=== PATIENT | female | born 1945 | race African-American/Black ===

== ENCOUNTER 2022-01-19 15:39 | Emergency (ER) | payer OTHER ==
[2022-01-19 15:52] VITALS: BP 151/72; PULSE 69; RESP 18; TEMP 97.9; BMI 22.4
== END 2022-01-19 18:19 | disposition home or self-care (01) ==
LOC: JER 15:39
DX: S80.812A Abrasion, left lower leg, initial encounter (principal); W10.8XXA Fall (on) (from) other stairs and steps, initial encounter; V48.4XXA Person boarding or alighting a car injured in noncollision transport accident, initial encounter
CPT/HCPCS: 73590-TC-LT-FY; 99283-25

== ENCOUNTER 2022-06-16 21:18 | Emergency (ER) | payer OTHER ==
[2022-06-16 21:40] VITALS: BP 150/76; PULSE 65; RESP 20; TEMP 98.5; BMI 47.3
[2022-06-16] MEDS ORDERED: ACETAMINOPHEN 325 MG TABLET (FP) PO ONE (23:07)
[2022-06-16] MEDS ORDERED: ACETAMINOPHEN 325 MG TABLET (FP) ONE (23:07)
== END 2022-06-16 23:27 | disposition home or self-care (01) ==
LOC: JER 21:18 → JERFT 21:18 → JER 23:27
DX: M25.562 Pain in left knee (principal); W01.0XXA Fall on same level from slipping, tripping and stumbling without subsequent striking against object, initial encounter
CPT/HCPCS: 73560-TC-LT-FY; 99283-25

== ENCOUNTER 2022-09-09 08:24 | Observation (INO) | payer OTHER ==
[2022-09-09 08:54] VITALS: RESP 18
[2022-09-09 10:29] LABS: BASO % 0.8 % (0-2.0); EOS % 1.1 % (0-4.5); HEMATOCRIT 35.2 % (32.4-45.2); HEMOGLOBIN 11.6 GM/dL (10.7-15.3); MCH 28.1 pg (25.7-33.7); MEAN CELL VOLUME 85.1 fl (80-96); MEAN PLT VOLUME 10.6 fl (7.5-11.1); MONO % 14.9 % (3.8-10.2); NEUT % 67.2 % (42.8-82.8); PLATELET COUNT 102 10^3/uL (134-434); RBC 4.14 M/mm3 (3.60-5.2); RDW 13.8 % (11.6-15.6); WHITE BLOOD COUNT 6.4 K/mm3 (4.0-10.0)
[2022-09-09 10:34] LABS: INR 1.06 (0.83-1.09); PROTHROMBIN TIME (PATIENT) 12.3 SEC (9.7-13.0)
[2022-09-09 10:37] LABS: ACTIVATED PTT 29.1 SECONDS (25.2-36.5)
[2022-09-09 10:47] LABS: POTASSIUM 3.7 mmol/L (3.5-5.1)
[2022-09-09 10:49] LABS: ALBUMIN 3.4 g/dl (3.4-5.0); BLOOD UREA NITROGEN 16.6 mg/dL (7-18); CALCIUM 9.5 mg/dL (8.5-10.1)
[2022-09-09 10:52] LABS: CREATININE 0.8 mg/dL (0.55-1.3)
[2022-09-09 10:54] LABS: BILIRUBIN,TOTAL 0.5 mg/dL (0.2-1); TOT PROT 6.9 g/dl (6.4-8.2)
[2022-09-09] MEDS ORDERED: ACETAMINOPHEN 1000 MG/100 ML BAG IVPB PRN (15:04)
[2022-09-09] MEDS ORDERED: ACETAMINOPHEN 1000 MG/100 ML BAG IVPB SCH (15:15)
[2022-09-09 15:55] VITALS: BMI 23.0
[2022-09-09] MEDS: LISINOPRIL 20 MG TABLET PO SCH (16:14)
[2022-09-09] MEDS: NIFEdipine E.R 60 MG TABLET PO SCH (16:14)
[2022-09-10] MEDS: NIFEdipine E.R 60 MG TABLET PO SCH (09:50)
[2022-09-10] MEDS: LISINOPRIL 20 MG TABLET PO SCH (09:50)
[2022-09-10] MEDS ORDERED: ATENOLOL 50 MG TABLET (FP) PO SCH (10:00)
[2022-09-10] MEDS ORDERED: ATORVASTATIN CA 80 MG TABLET (FP) PO SCH (10:00)
[2022-09-10] MEDS ORDERED: ENOXAPARIN NA (PORCINE) 40 MG/0.4 ML DISP.SYRIN SQ SCH (10:00)
[2022-09-10 10:28] LABS: POTASSIUM 3.3 mmol/L (3.5-5.1)
[2022-09-10 10:35] LABS: BLOOD UREA NITROGEN 14.2 mg/dL (7-18); PHOSPHOROUS 2.8 mg/dL (2.5-4.9)
[2022-09-10 10:36] LABS: ALBUMIN 3.4 g/dl (3.4-5.0)
[2022-09-10 10:37] LABS: BILIRUBIN,TOTAL 0.3 mg/dL (0.2-1); TOT PROT 7.2 g/dl (6.4-8.2)
[2022-09-10 10:38] LABS: CALCIUM 9.1 mg/dL (8.5-10.1); MAGNESIUM 2.3 mg/dL (1.8-2.4)
[2022-09-10 10:39] LABS: BASO % 0.4 % (0-2.0); CREATININE 0.9 mg/dL (0.55-1.3); EOS % 2.2 % (0-4.5); HEMATOCRIT 38.2 % (32.4-45.2); HEMOGLOBIN 12.5 GM/dL (10.7-15.3); LYMPH % 21.7 % (8-40); MCH 27.8 pg (25.7-33.7); MCHC 32.7 g/dl (32.0-36.0); MEAN PLT VOLUME 10.9 fl (7.5-11.1); MONO % 13.2 % (3.8-10.2); NEUT % 62.5 % (42.8-82.8); PLATELET COUNT 120 10^3/uL (134-434); RBC 4.49 M/mm3 (3.60-5.2); RDW 13.8 % (11.6-15.6); WHITE BLOOD COUNT 5.2 K/mm3 (4.0-10.0)
[2022-09-10 13:44] VITALS: BP 121/63; PULSE 56; TEMP 97.8
== END 2022-09-10 19:18 | disposition home or self-care (01) ==
LOC: JER 08:24 → JERBED 14:37 → J6S 15:26
PROVIDERS: ADMIT Internal Medicine; ATTEND Internal Medicine
PROC: 2W3JX1Z Immobilization of Right Finger using Splint (ICD-10-PCS; principal; 2022-09-09)
PROC: 3E013GC Introduction of Other Therapeutic Substance into Subcutaneous Tissue, Percutaneous Approach (ICD-10-PCS; 2022-09-09)
DX: S62.521A Displaced fracture of distal phalanx of right thumb, initial encounter for closed fracture (principal); S80.02XA Contusion of left knee, initial encounter; G62.9 Polyneuropathy, unspecified; I10 Essential (primary) hypertension; E78.5 Hyperlipidemia, unspecified; W18.39XA Other fall on same level, initial encounter; Y93.89 Activity, other specified; Y92.9 Unspecified place or not applicable
CPT/HCPCS: 0241U-QW; 29130; 36415; 70450-TC; 71045-TC-FY; 72125-TC; 72170-TC-FY; 73130-TC-RT-FY; 73140-TC-RT-FY; 73502-TC-LT-FY; 73552-TC-LT-FY; 73560-TC-LT-FY; 73590-TC-LT-FY; 73700-TC-RT; 80053; 83735; 84100; 84484; 85025; 85610; 85730; 93005; 93010; 93971-TC; 96372; 97116-GP; 97162-GP; 99285-25; G0378

== ENCOUNTER 2024-09-30 16:08 | Emergency (ER) | payer OTHER ==
[2024-09-30 16:31] VITALS: BP 114/54; PULSE 61; RESP 18; TEMP 98.8; BMI 20.3
[2024-09-30] MEDS ORDERED: METHOCARBAMOL 500 MG TABLET ONE (17:00)
[2024-09-30] MEDS ORDERED: LIDOCAINE 4% PATCH TP ONE (17:01)
[2024-09-30] MEDS: METHOCARBAMOL 750 MG TABLET PO ONE (17:05)
[2024-09-30] MEDS: METHYL SALICYLATE/MENTHOL 30 GM TUBE TP ONE (17:05)
[2024-09-30] MEDS: LIDOCAINE 4% PATCH TP ONE (17:06)
[2024-09-30] MEDS: LIDOCAINE PATCH REMOVAL MC SCH (17:09)
[2024-09-30] MEDS ORDERED: ACETAMINOPHEN 500 MG TABLET (FP) ONE (18:18)
[2024-09-30] MEDS: ACETAMINOPHEN 500 MG TABLET (FP) PO ONE (18:22)
== END 2024-09-30 18:59 | disposition home or self-care (01) ==
LOC: JER 16:08
DX: M54.2 Cervicalgia (principal); M25.511 Pain in right shoulder; X50.0XXA Overexertion from strenuous movement or load, initial encounter
CPT/HCPCS: 99283-25